=== PATIENT | male | born 1990 | race Caucasian/White ===

== ENCOUNTER 2016-05-28 19:20 | Emergency (ER) | payer OTHER ==
[2016-05-28 20:24] VITALS: BP 113/72
[2016-05-28] MEDS ORDERED: Ketorolac INJ* 60 MG/2 ML VIAL IM ONE (20:39)
[2016-05-28] MEDS ORDERED: Amoxicillin/Clavulanate TAB* 875 MG PO ONE (20:42)
[2016-05-28] MEDS ORDERED: traMADol TAB* 50 MG PO ONE (20:45)
--- NOTE | 2016-05-28 20:58 | UC ---
UC General HPI - HPI Summary HPI Summary: 1) RIGHT INDEX FINGER AND RIGHT RING FINGER REDNESS AT CUTICLES. FREQUENTLY BITES NAILS. NO FEVER. NO DISCHARGE. 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 Negative: Diarrhea, Dysuria, Edema, Fever, Nausea, Palpitations, Trauma - Allergy/Home Medications Allergies/Adverse Reactions: Allergies Allergy/AdvReac Type Severity Reaction Status Date / Time No Known Allergies Allergy Verified 05/28/16 20:25 Home Medications: Home Medications Acetaminophen [Acetaminophen Extra Stren] 1,000 mg PO DAILY 05/28/16 [History Confirmed 05/28/16] PMH/Surg Hx/FS Hx/Imm Hx Previously Healthy: Yes - Surgical History Surgical History: None - Family History Known Family History: Positive: Respiratory Disease - Social History Occupation: Unemployed Lives: With Family Alcohol Use: Rare Substance Use Type: None Smoking Status (MU): Heavy Every Day Tobacco Smoker Have You Smoked in the Last Year: Yes Cessation Counseling: Counseled 3+Min - 10 Min Review of Systems Constitutional: Negative Skin: Negative Eyes: Negative ENT: Dental Pain Respiratory: Negative Cardiovascular: Negative Gastrointestinal: Negative Genitourinary: Negative Motor: Negative Neurovascular: Negative Musculoskeletal: Myalgia - RIGHT SECOND AND FOURTH FINGER REDNESS AND PAIN AT CUTICLES Neurological: Negative Psychological: Negative All Other Systems Reviewed And Are Negative: Yes Physical Exam Triage Information Reviewed: Yes Appearance: Well-Appearing, Well-Nourished, Pain Distress, Thin Vital Signs: Initial Vital Signs Temp 97.6 F 05/28/16 20:20 Pulse 107 05/28/16 20:20 Resp 16 05/28/16 20:20 BP 113/72 05/28/16 20:20 Pulse Ox 100 05/28/16 20:20 Vital Signs Reviewed: Yes Eye Exam: Normal Eyes: Positive: Conjunctiva Clear ENT Exam: Normal ENT: Positive: Normal ENT inspection, Hearing grossly normal, Pharynx normal, TMs normal Dental: Positive: Percussion Tenderness @ - 17 Neck exam: Normal Neck: Positive: Supple, Nontender, No Lymphadenopathy Respiratory Exam: Normal Respiratory: Positive: Chest non-tender, Lungs clear, Normal breath sounds, No respiratory distress, No accessory muscle use Cardiovascular Exam: Normal Cardiovascular: Positive: RRR, No Murmur, Pulses Normal Abdominal Exam: Normal Abdomen Description: Positive: Nontender, No Organomegaly Musculoskeletal: Positive: Strength Intact, ROM Intact - RIGHT 2ND AND 4TH FINGER ERRETHEMA AROUND CUTICLES WITHOUT ANY AREAS OF APPRECIABLE FLUCTUANCE. THE COMPLAINT AT THIS POINT APPEARS MORE CELLULITIC THAN ABCESS ON BOTH FINGERS , Other: Neurological Exam: Normal Psychological Exam: Normal Skin Exam: Normal Course/Dx - Differential Dx - Multi-Symptom Differential Diagnoses: Other - PARONYCHIA DENTAL PAIN Provider Diagnoses: RIGHT SECOND AND FOURTH FINGER CELLULITIC PARONYCHIA. DENTAL PAIN GINGIVAL CELLULITIS #17. TOBACCO ABUSE Discharge - Discharge Plan Condition: Stable Disposition: HOME Prescriptions: Amoxicillin/Clavulanate TAB* [Augmentin TAB 875*] 875 mg PO BID #20 tab traMADol TAB* [Ultram*] 50 mg PO Q12H PRN #8 tab MDD TWO TABS PRN Reason: Pain Patient Education Materials: How to Stop Smoking (ED), Paronychia (ED), Cigarette Smoking and Your Health (GEN), Toothache (ED) Referrals: [facility]IAN REFERRAL [Outside] No Primary Care Phys,NOPCP [Primary Care Provider] - Additional Instructions: DENTAL REFERRAL SHEET GIVEN Images Dental: 1 - TENDER HERE
== END 2016-05-28 21:17 | disposition home or self-care (01) ==
LOC: UCCORT 19:20
DX: L03.011 Cellulitis of right finger (principal); K12.2 Cellulitis and abscess of mouth; K08.89 Other specified disorders of teeth and supporting structures; F17.210 Nicotine dependence, cigarettes, uncomplicated
CPT/HCPCS: 96372; 99202; A9270-GY; G0463; J1885

== ENCOUNTER 2016-08-21 13:02 | Emergency (ER) | payer OTHER ==
[2016-08-21 13:18] VITALS: BP 118/75
--- NOTE | 2016-08-21 13:52 | UC ---
Abdominal Pain Male HPI - HPI Summary HPI Summary: EPIGASTRIC ABDOMINAL PAIN X 7 DAYS + NAUSEA , NO VOMITING , NO DIARRHEA OR CONSTIPATION, NO URINARY SX. NO FEVER, NO CHILLS, PAIN WITH MOVEMENT, INCREASE PAIN WITH BREATHING - History of Current Complaint Chief Complaint: UCAbdominalPain Stated Complaint: STOMACH PRESSURE/PAIN NAUSEA Time Seen by Provider: 08/21/16 13:36 Hx Obtained From: Patient Onset/Duration: Gradual Onset, Lasting Days - 7, Still Present Timing: Constant Severity Initially: Moderate Severity Currently: Moderate Location: Epigastric Radiates: No Character: Burning Aggravating Factor(s):: Movement Alleviating Factor(s): Nothing Associated Signs And Symptoms: Positive: Nausea. Negative: Diaphoresis, Fever, Cough, Chest Pain, Dizzy, Back Pain, Constipation, Blood in Stool, Urinary Symptoms, Decreased Appetite, Vomiting, Diarrhea, Penile Discharge - Allergies/Home Medications Allergies/Adverse Reactions: Allergies Allergy/AdvReac Type Severity Reaction Status Date / Time No Known Allergies Allergy Verified 08/21/16 13:18 Home Medications: Home Medications Omeprazole CAP* [Prilosec CAP* 20 MG] 1 tab PO DAILY 08/21/16 [History Confirmed 08/21/16] PMH/Surg Hx/FS Hx/Imm Hx Endocrine History Of: Denies: Thyroid Disease Respiratory History Of: Reports: Asthma Cancer History Of: Denies: Lung Cancer - Surgical History Surgical History: Yes Surgery Procedure, Year, and Place: [place] teeth. RIGHT knee ACL/meniscus - Family History Known Family History: Positive: Respiratory Disease - Social History Alcohol Use: Occasionally Substance Use Type: None Smoking Status (MU): Heavy Every Day Tobacco Smoker Amount Used/How Often: 1/2 ppd Have You Smoked in the Last Year: Yes - Immunization History Most Recent Influenza Vaccination: NONE Most Recent Tetanus Shot: UTD Most Recent Pneumonia Vaccination: N/A Review of Systems Constitutional: Fatigue Skin: Negative Eyes: Negative ENT: Negative Respiratory: Negative Cardiovascular: Negative Gastrointestinal: Abdominal Pain, Vomiting Genitourinary: Negative Motor: Negative All Other Systems Reviewed And Are Negative: Yes Physical Exam Triage Information Reviewed: Yes Appearance: Well-Appearing, Well-Nourished, Pain Distress Vital Signs: Initial Vital Signs Temp 97.6 F 08/21/16 13:13 Pulse 93 08/21/16 13:13 Resp 18 04/25/17 13:13 BP 118/75 08/21/16 13:13 Pulse Ox 100 08/21/16 13:13 Vital Signs Reviewed: Yes Eyes: Positive: Conjunctiva Clear ENT: Positive: Normal ENT inspection, Hearing grossly normal, Pharynx normal Neck: Positive: Supple, Nontender, No Lymphadenopathy Respiratory: Positive: Chest non-tender, Lungs clear, Normal breath sounds Cardiovascular: Positive: RRR, No Murmur, Pulses Normal Abdomen Description: Positive: Soft, Other: - + EPIGASTRIC TENDERNESS. Negative : CVA Tenderness (R), CVA Tenderness (L), Distended, Guarding, Hernia @, Hepatomegaly, McBurney's Point Tenderness, Peritoneal Signs, Pulsatile Mass, Splenomegaly Bowel Sounds: Positive: Present Abd Pain Male Course/Dx - Differential Dx/Clinical Impression Provider Diagnoses: GASTRITIS Discharge - Discharge Plan Condition: Stable Disposition: HOME Prescriptions: Omeprazole 40 mg PO DAILY #30 cap Ondansetron [Zofran 8 MG Odt] 8 mg PO Q8H #12 tab Patient Education Materials: Gastritis (ED) Additional Instructions: FOLLOW UP WITH YOUR PCP IN ONE WEEK
--- NOTE | 2016-08-21 14:00 | RAD ---
Indication: Pleuritic chest pain. 2 views of the chest including dual energy PA views demonstrate no mediastinal shift. Heart is of normal size and configuration. Lung ch demonstrate no pleural fluid, pneumonia or pneumothorax. IMPRESSION: No active cardiopulmonary disease is noted.
== END 2016-08-21 14:11 | disposition home or self-care (01) ==
LOC: UCCORT 13:02
DX: K29.70 Gastritis, unspecified, without bleeding (principal); J45.909 Unspecified asthma, uncomplicated; F17.210 Nicotine dependence, cigarettes, uncomplicated
CPT/HCPCS: 71020; 99212; G0463

== ENCOUNTER 2017-01-30 20:03 | Emergency (ER) | payer OTHER ==
[2017-01-30 20:38] VITALS: BP 101/56
[2017-01-30] MEDS ORDERED: Ondansetron ODT TAB* 4 MG PO ONE (21:05)
--- NOTE | 2017-01-30 21:12 | UC ---
Abdominal Pain Male HPI - HPI Summary HPI Summary: vomiting and diarrhea for 5 days. no other household contacts. no well water or recent hospitlization. he has been started on zoloft about a week ago. no blood or fever. - History of Current Complaint Chief Complaint: UCGI Stated Complaint: COLD COMPLAINT Time Seen by Provider: 01/30/17 20:50 Hx Obtained From: Patient, Family/Seo Analyst Onset/Duration: Gradual Onset, Lasting Days Timing: Constant Severity Initially: Mild Severity Currently: Moderate Location: Diffuse - diffuse aching and cramping. Radiates: No Character: Cramping Aggravating Factor(s): Food, Movement Alleviating Factor(s): Nothing Associated Signs And Symptoms: Positive: Decreased Appetite, Diarrhea. Negative : Diaphoresis, Fever, Constipation, Blood in Stool, Urinary Symptoms, Vomiting - Allergies/Home Medications Allergies/Adverse Reactions: Allergies Allergy/AdvReac Type Severity Reaction Status Date / Time No Known Allergies Allergy Verified 01/30/17 20:31 Home Medications: Home Medications Acetaminophen [Tylenol] 650 mg PO ONCE PRN 01/30/17 [History Confirmed 01/30/17] PMH/Surg Hx/FS Hx/Imm Hx Previously Healthy: No - appendicitis. depression. recent onset seizures. - Surgical History Surgical History: Yes Surgery Procedure, Year, and Place: [place] teeth. RIGHT knee ACL/meniscus. appy - Family History Known Family History: Positive: Respiratory Disease - Social History Alcohol Use: Rare Substance Use Type: None Smoking Status (MU): Heavy Every Day Tobacco Smoker Amount Used/How Often: 1/2 ppd Have You Smoked in the Last Year: Yes - Immunization History Most Recent Influenza Vaccination: NONE Most Recent Tetanus Shot: UTD Most Recent Pneumonia Vaccination: N/A Review of Systems Gastrointestinal: Vomiting, Diarrhea All Other Systems Reviewed And Are Negative: Yes Physical Exam Triage Information Reviewed: Yes Appearance: Well-Appearing, No Pain Distress, Well-Nourished Vital Signs: Initial Vital Signs Temp 99.1 F 01/30/17 20:33 Pulse 84 01/30/17 20:33 Resp 14 01/30/17 20:33 BP 101/56 01/30/17 20:33 Pulse Ox 98 01/30/17 20:33 Vital Signs Reviewed: Yes Eye Exam: Normal ENT: Positive: Pharynx normal Neck: Positive: Supple, Nontender, No Lymphadenopathy Respiratory: Positive: Lungs clear, Normal breath sounds, No respiratory distress, No accessory muscle use. Negative: Respiratory distress Cardiovascular: Positive: RRR, No Murmur, Pulses Normal, Brisk Capillary Refill Abdominal Exam: Other - tender diffusely most notably in the LUQ. no guarding or rebound. Abdomen Description: Positive: No Organomegaly, Soft. Negative: CVA Tenderness (R), CVA Tenderness (L), Distended, Guarding Musculoskeletal: Positive: Strength Intact, ROM Intact, No Edema Neurological: Positive: Alert, Muscle Tone Normal, Fatigued Psychological: Positive: Age Appropriate Behavior Skin: Negative: rashes Abd Pain Male Course/Dx - Course Course Of Treatment: this is not c/w with zoloft side effects and diarrhea is not typically a symptom. no bleeding. he agrees to get re evaluation if there is any persistent or worsening symptoms. he is currently drinking a chanda lesley and is holding that down. - Differential Dx/Clinical Impression Provider Diagnoses: diarrhea. vomiting. diffuse abd pain Discharge - Discharge Plan Condition: Good Disposition: HOME Prescriptions: Loperamide CAP* [Imodium CAP*] 4 mg PO Q4H PRN #20 cap PRN Reason: Diarrhea Ondansetron ODT TAB* [Zofran 4 MG Odt TAB*] 4 mg PO Q8H PRN #20 tab.odt PRN Reason: Vomiting Patient Education Materials: Loperamide (By mouth), Acute Diarrhea (ED) Referrals: No Primary Care Phys,NOPCP [Primary Care Provider] - Additional Instructions: return for any worsening.
== END 2017-01-30 21:17 | disposition home or self-care (01) ==
LOC: UCCORT 20:03
DX: R19.7 Diarrhea, unspecified (principal); R11.10 Vomiting, unspecified; R10.9 Unspecified abdominal pain
CPT/HCPCS: 99212; A9270-GY; G0463

== ENCOUNTER 2017-03-05 14:56 | Emergency (ER) | payer OTHER ==
[2017-03-05 15:31] VITALS: BP 122/71
--- NOTE | 2017-03-05 15:32 | UC ---
Throat Pain/Nasal Keven HPI - HPI Summary HPI Summary: Pt presents with sore throat and hoarseness for 2 days. Girlfriend is sick with bronchitis. Has not tried anything OTC. Eating, drinking, swallowing, and talking make his pain worse. He denies fever, chills, SOB, chest congestion, cough, N/V/D/C. - History of Current Complaint Chief Complaint: UCRespiratory Stated Complaint: ST,COUGH Time Seen by Provider: 03/05/17 15:32 Hx Obtained From: Patient Onset/Duration: Gradual Onset Severity: Severe Pain Intensity: 8 Pain Scale Used: 0-10 Numeric Cough: Nonproductive Associated Signs & Symptoms: Positive: Hoarseness. Negative: Dysphagia, FB Sensation, Drooling, Fever, Vomiting, Rash - Allergies/Home Medications Allergies/Adverse Reactions: Allergies Allergy/AdvReac Type Severity Reaction Status Date / Time No Known Allergies Allergy Verified 03/05/17 15:27 PMH/Surg Hx/FS Hx/Imm Hx Previously Healthy: Yes - Surgical History Surgical History: Yes Surgery Procedure, Year, and Place: [place] teeth. RIGHT knee ACL/meniscus. appy - Family History Known Family History: Positive: Respiratory Disease - Social History Alcohol Use: None Substance Use Type: None Smoking Status (MU): Heavy Every Day Tobacco Smoker Amount Used/How Often: <1/2 ppd Have You Smoked in the Last Year: Yes Cessation Counseling: Counseled 3+Min - 10 Min - Immunization History Most Recent Influenza Vaccination: NONE 2016 Most Recent Tetanus Shot: UTD Most Recent Pneumonia Vaccination: N/A Review of Systems Constitutional: Negative Eyes: Negative ENT: Sore Throat, Other - Hoarseness Respiratory: Negative Cardiovascular: Negative Gastrointestinal: Negative Neurovascular: Negative Neurological: Negative Psychological: Negative Is Patient Immunocompromised?: No All Other Systems Reviewed And Are Negative: Yes Physical Exam Triage Information Reviewed: Yes Appearance: Well-Appearing, Well-Nourished Vital Signs: Initial Vital Signs Temp 99 F 03/05/17 15:27 Pulse 109 03/05/17 15:27 Resp 16 03/05/17 15:27 BP 122/71 03/05/17 15:27 Pulse Ox 100 03/05/17 15:27 Vital Signs Reviewed: Yes Eyes: Positive: Conjunctiva Clear ENT: Positive: Hearing grossly normal, Pharyngeal erythema, TMs normal, Hoarse voice, Uvula midline. Negative: Nasal congestion, Nasal drainage, TM bulging, TM dull, TM red, Tonsillar swelling, Tonsillar exudate, Sinus tenderness Neck: Positive: Supple, No Lymphadenopathy, Tenderness @ - Right and Left submandibular Respiratory: Positive: Chest non-tender, Lungs clear, Normal breath sounds, No respiratory distress, No accessory muscle use Cardiovascular: Positive: RRR, No Murmur, Pulses Normal Neurological: Positive: Alert Psychological: Positive: Age Appropriate Behavior Skin: Negative: rashes Throat Pain/Nasal Course/Dx - Course Course Of Treatment: 1) Z-chapincito take as directed. 2) Lidocaine swish and swallow. May use 10-15mL three times a day as needed for sore throat Assessment/Plan: 1) Z-chapincito take as directed. 2) Lidocaine swish and swallow. May use 10-15mL three times a day as needed for sore throat - Differential Dx/Diagnosis Differential Diagnosis/HQI/PQRI: Epiglottitis, Influenza, Peritonsillar Abscess , Pharyngitis Provider Diagnoses: Pharyngitis Discharge - Discharge Plan Condition: Stable Disposition: HOME Prescriptions: Azithromycin TAB* [Zithromax TAB (Z-CHAPINCITO) 250 mg #6 tabs] 2 tab PO .TODAY, THEN 1 DAILY #1 chaipncito Lidocaine 2% VISCOUS* [Xylocaine 2% Viscous*] 15 ml SWISH SWAL Q6H PRN #1 btl PRN Reason: Pain Patient Education Materials: Pharyngitis (ED) Referrals: GABBIE Pires [Primary Care Provider] - Additional Instructions: 1) Z-chapincito take as directed 2) Lidocaine swish and swallow. May use 10-15mL three times a day as needed for sore throat 3) Rest and drink plenty of fluids. If you develop a fever, SOB, chest pain, new or worsening symptoms - please call our office or go to ED
== END 2017-03-05 16:18 | disposition home or self-care (01) ==
LOC: UCCORT 14:56
DX: J02.9 Acute pharyngitis, unspecified (principal); F17.210 Nicotine dependence, cigarettes, uncomplicated
CPT/HCPCS: 87651; 99212; G0463

== ENCOUNTER 2017-04-20 20:30 | Emergency (ER) | payer OTHER ==
[2017-04-20 20:49] VITALS: BP 116/68
--- NOTE | 2017-04-20 20:53 | UC ---
FLU HPI - HPI Summary HPI Summary: 26 year old male presents with body aches and fever. - History of Current Complaint Chief Complaint: UCGeneralIllness Stated Complaint: VOMITING/BODY ACHES Time Seen by Provider: 04/20/17 20:52 Hx Obtained From: Patient Onset/Duration: Sudden Onset Severity Currently: Moderate Severity Initially: Moderate Pain Scale Used: 0-10 Numeric - 5 Associated Signs & Symptoms: Positive: Sore Throat, Nasal Congestion - Allergy/Home Medications Allergies/Adverse Reactions: Allergies Allergy/AdvReac Type Severity Reaction Status Date / Time No Known Allergies Allergy Verified 04/20/17 20:49 Home Medications: Home Medications Acetaminophen TAB* [Tylenol TAB*] 650 mg PO Q4H PRN 04/20/17 [History Confirmed 04/20/17] Ibuprofen [Ibuprofen 200 MG] 400 mg PO Q6H PRN 04/20/17 [History Confirmed 04/20] PMH/Surg Hx/FS Hx/Imm Hx Previously Healthy: Yes - Surgical History Surgical History: Yes Surgery Procedure, Year, and Place: [place] teeth. RIGHT knee ACL/meniscus. appy - Family History Known Family History: Positive: Respiratory Disease - Social History Alcohol Use: Occasionally Substance Use Type: None Smoking Status (MU): Heavy Every Day Tobacco Smoker Type: Cigarettes Amount Used/How Often: <1/2 ppd Length of Time of Smoking/Using Tobacco: 6 YRS Have You Smoked in the Last Year: Yes - Immunization History Most Recent Influenza Vaccination: NONE 2016 Most Recent Tetanus Shot: UTD Most Recent Pneumonia Vaccination: N/A Review of Systems Constitutional: Negative Skin: Negative Eyes: Negative ENT: Sore Throat, Nasal Discharge, Sinus Congestion Respiratory: Negative Cardiovascular: Negative Gastrointestinal: Negative Genitourinary: Negative Motor: Negative Neurovascular: Negative Musculoskeletal: Negative Neurological: Negative Psychological: Negative All Other Systems Reviewed And Are Negative: Yes Physical Exam Triage Information Reviewed: Yes Vital Signs: Initial Vital Signs Temp 36.9 C 04/20/17 20:40 Pulse 97 04/20/17 20:40 Resp 20 04/20/17 20:40 BP 116/68 04/20/17 20:40 Pulse Ox 99 04/20/17 20:40 Vital Signs Reviewed: Yes Eye Exam: Normal ENT: Positive: Pharyngeal erythema, Nasal congestion, Nasal drainage, Tonsillar swelling, Sinus tenderness Dental Exam: Normal Neck exam: Normal Neck: Positive: 1 Respiratory Exam: Normal Cardiovascular Exam: Normal Abdominal Exam: Normal Musculoskeletal Exam: Normal Neurological Exam: Normal Psychological Exam: Normal Skin Exam: Normal Flu Course/Dx - Differential Dx/Diagnosis Provider Diagnoses: sinusitis Discharge - Discharge Plan Condition: Stable Disposition: HOME Prescriptions: Amoxicillin/Clavulanate TAB* [Augmentin TAB 875*] 875 mg PO BID #20 tab Fluticasone NASAL SPRAY 50MCG* [Flonase NASAL SPRAY 50MCG*] 2 spray BOTH NARES DAILY #1 btl LoraTADine TAB(NF) [Claritin 10 MG TAB(NF)] 10 mg PO DAILY #30 tab Patient Education Materials: Sinusitis (ED) Forms: *Work Release Referrals: GABBIE Pires [Primary Care Provider] -
[2017-04-20] MEDS ORDERED: LoraTADine TAB(NF) 10 MG TAB (AUTOSUB to CETIRIZINE) PO ONE (21:19)
[2017-04-20] MEDS ORDERED: Amoxicillin/Clavulanate TAB* 875 MG PO ONE (21:19)
[2017-04-20] MEDS ORDERED: predniSONE TAB* 20 MG PO ONE (21:20)
[2017-04-20] MEDS ORDERED: Ondansetron ODT TAB* 4 MG PO ONE (21:23)
[2017-04-20] MEDS ORDERED: Ondansetron ODT TAB* 4 MG ONE (21:34)
== END 2017-04-20 21:37 | disposition home or self-care (01) ==
LOC: UCCORT 20:30
DX: J32.9 Chronic sinusitis, unspecified (principal); Z72.0 Tobacco use; Z72.89 Other problems related to lifestyle
CPT/HCPCS: 87502; 99213; A9270-GY; G0463; J7512

== ENCOUNTER 2017-05-22 14:21 | Emergency (ER) | payer OTHER ==
[2017-05-22] MEDS ORDERED: Ondansetron INJ* 2 MG/ML VIAL IV ONE ×2 (16:01→16:29)
[2017-05-22] MEDS ORDERED: Ondansetron ODT TAB* 4 MG PO ONE (16:02)
[2017-05-22] MEDS ORDERED: hydrOXYzine HCL TAB* 25 MG PO ONE (16:02)
[2017-05-22] MEDS ORDERED: Ondansetron INJ* 2 MG/ML VIAL ONE (16:31)
[2017-05-22 17:10] LABS: Urine Appearance Clear; Urine Blood Negative (Negative); Urine Color Yellow; Urine Ketones Negative (Negative); Urine Protein Negative (Negative); Urine Specific Gravity 1.014 (1.010-1.030); Urine Urobilinogen Negative (Negative)
--- NOTE | 2017-05-22 17:13 | RAD ---
Indication: Back pain. Abdominal pain. Flat and upright views of the abdomen demonstrates no free air. Air distended colon is noted. No dilated loops of small bowel are noted. IMPRESSION: Air distended stomach with no free air or obstruction is noted.
[2017-05-22 17:18] LABS: ABS Basophils 0.1 10^3/ul (0-0.2); ABS Eosinophils 0.1 10^3/ul (0-0.6); ABS Lymphocytes 1.3 10^3/ul (1.0-4.8); ABS Monocytes 0.6 10^3/ul (0-0.8); ABS Neutrophils 6.6 10^3/ul (1.5-7.7); ABS Nucleated RBC 0 10^3/ul; Eosinophil % 1.7 % (0-6); Hematocrit 47 % (42-52); Hemoglobin 16.2 g/dl (14.0-18.0); Lymphocyte % 14.7 % (25-47); Mean Corpuscular HGB Conc 34 g/dl (31-36); Mean Corpuscular Hemoglobin 31 pg (27-31); Mean Corpuscular Volume 91 fL (80-94); Mean Platelet Volume 8 um3 (7.4-10.4); Nucleated Red Blood Cells % 0; Platelet Count 256 10^3/ul (150-450); Red Blood Count 5.15 10^6/ul (4.0-5.4); Red Cell Distribution Width 13 % (10.5-15); White Blood Count 8.7 10^3/ul (3.5-10.8)
[2017-05-22 17:19] LABS: EGFR Non-African American 103.7 (>60)
[2017-05-22 17:59] VITALS: BP 102/64
--- NOTE | 2017-05-22 18:00 | ED ---
Maximo Hood Nilda, scribed for Louis Peter MD on 05/22/17 at 1553 . GI/ HPI - HPI Summary HPI Summary: This patient is a 26 year old M presenting to [facility] accompanied by parents with a chief complaint of constant nausea since yesterday. The patient rates pain 8/ 10 in severity. Symptoms aggravated and alleviated by notihng. Patient reports fatigue, body weakness, dizziness, and slow response. Pt states he's had previous episodes when having low blood sugar. Per mother, pt has had loss of appetite. She also notes pt had neuro consult in [place] and was Dx with Panic Disorder. PMHx includes panic attacks. - History of Current Complaint Chief Complaint: EDNauseaVomitDiarrh Time Seen by Provider: 05/22/17 14:33 Stated Complaint: NAUSEA Hx Obtained From: Patient Onset/Duration: Started Hours Ago, Still Present Timing: Constant Current Severity: Severe Pain Intensity: 8 Associated Signs and Symptoms: Positive: Other: - reports loss of appetite, fatigue, body weakness, dizziness, and slow response. - Allergy/Home Medications Allergies/Adverse Reactions: Allergies Allergy/AdvReac Type Severity Reaction Status Date / Time bees Allergy Swelling Uncoded 05/22/17 15:49 PMH/Surg Hx/FS Hx/Imm Hx Endocrine/Hematology History: Denies: Hx Thyroid Disease Respiratory History: Reports: Hx Asthma Denies: Hx Lung Cancer Psychiatric History: Reports: Other Psychiatric Issues/Disorders - Panic Attacks - Surgical History Surgery Procedure, Year, and Place: [place] teeth. RIGHT knee ACL/meniscus. appy Infectious Disease History: No Infectious Disease History: Denies: Traveled Outside the [place] in Last 30 Days - Family History Known Family History: Positive: Respiratory Disease - Social History Alcohol Use: Occasionally Substance Use Type: Reports: None Smoking Status (MU): Heavy Every Day Tobacco Smoker Type: Cigarettes Amount Used/How Often: <1/2 ppd Length of Time of Smoking/Using Tobacco: 6 YRS Have You Smoked in the Last Year: Yes Review of Systems Positive: Fatigue Positive: Nausea Neurological: Other - dizziness, slow response Positive: Weakness All Other Systems Reviewed And Are Negative: Yes Physical Exam - Summary Physical Exam Summary: VITAL SIGNS: Reviewed. GENERAL: Patient is a well-developed and nourished male who is lying comfortable in the stretcher. Patient is not in any acute respiratory distress. HEAD AND FACE: No signs of trauma. No ecchymosis, hematomas or skull depressions. No sinus tenderness. EYES: PERRLA, EOMI x 2, No injected conjunctiva, no nystagmus. EARS: Hearing grossly intact. Ear canals and tympanic membranes are within normal limits. MOUTH: Oropharynx within normal limits. NECK: Supple, trachea is midline, no adenopathy, no JVD, no carotid bruit, no c- spine tenderness, neck with full ROM. CHEST: Symmetric, no tenderness at palpation LUNGS: Clear to auscultation bilaterally. No wheezing or crackles. CVS: Regular rate and rhythm, S1 and S2 present, no murmurs or gallops appreciated. ABDOMEN: Soft, non-tender. No signs of distention. No rebound no guarding, and no masses palpated. Bowel sounds are normal. EXTREMITIES: FROM in all major joints, no edema, no cyanosis or clubbing. NEURO: Alert and oriented x 3. No acute neurological deficits. Speech is normal and follows commands. SKIN: Dry and warm Triage Information Reviewed: Yes Vital Signs On Initial Exam: Initial Vitals Temp Pulse Resp BP Pulse Ox 98.5 F 75 20 106/65 98 05/22/17 15:06 05/22/17 15:06 05/22/17 15:06 05/22/17 15:06 05/22/17 15:06 Vital Signs Reviewed: Yes Diagnostics - Vital Signs Vital Signs Temp Pulse Resp BP Pulse Ox 05/22/17 15:06 98.5 F 75 20 106/65 98 - Laboratory Lab Results: Lab Results 05/22/17 05/22/17 05/22/17 Range/Units 16:22 16:22 16:35 WBC 8.7 (3.5-10.8) 10^3/ul RBC 5.15 (4.0-5.4) 10^6/ul Hgb 16.2 (14.0-18.0) g/dl Hct 47 (42-52) % MCV 91 (80-94) fL MCH 31 (27-31) pg MCHC 34 (31-36) g/dl RDW 13 (10.5-15) % Plt Count 256 (150-450) 10^3/ul MPV 8 (7.4-10.4) um3 Neut % (Auto) 75.7 (38-83) % Lymph % (Auto) 14.7 L (25-47) % Wayne % (Auto) 7.3 (1-9) % Eos % (Auto) 1.7 (0-6) % Baso % (Auto) 0.6 (0-2) % Absolute Neuts (auto) 6.6 (1.5-7.7) 10^3/ul Absolute Lymphs (auto) 1.3 (1.0-4.8) 10^3/ul Absolute Monos (auto) 0.6 (0-0.8) 10^3/ul Absolute Eos (auto) 0.1 (0-0.6) 10^3/ul Absolute Basos (auto) 0.1 (0-0.2) 10^3/ul Absolute Nucleated RBC 0 10^3/ul Nucleated RBC % 0 Sodium 136 (133-145) mmol/L Potassium 4.2 (3.5-5.0) mmol/L Chloride 104 (101-111) mmol/L Carbon Dioxide 29 (22-32) mmol/L Anion Gap 3 (2-11) mmol/L BUN 7 (6-24) mg/dL Creatinine 0.90 (0.67-1.17) mg/dL Est GFR ( Amer) 133.3 (>60) Est GFR (Non-Af Amer) 103.7 (>60) BUN/Creatinine Ratio 7.8 L (8-20) Glucose 81 (70-100) mg/dL Calcium 9.8 (8.6-10.3) mg/dL Total Bilirubin 0.60 (0.2-1.0) mg/dL AST 16 (13-39) U/L ALT 12 (7-52) U/L Alkaline Phosphatase 72 (34-104) U/L C-Reactive Protein < 1.00 (< 5.00) mg/L Total Protein 7.2 (6.4-8.9) g/dL Albumin 4.5 (3.2-5.2) g/dL Globulin 2.7 (2-4) g/dL Albumin/Globulin Ratio 1.7 (1-3) Amylase 66 (29-103) U/L Lipase Pending Urine Color Yellow Urine Appearance Clear Urine pH 5.0 (5-9) Ur Specific [place] 1.014 (1.010-1.030) Urine Protein Negative (Negative) Urine Ketones Negative (Negative) Urine Blood Negative (Negative) Urine Nitrate Negative (Negative) Urine Bilirubin Negative (Negative) Urine Urobilinogen Negative (Negative) Ur Leukocyte Esterase Negative (Negative) Urine Glucose Negative (Negative) Result Diagrams: 05/22/17 16:22 05/22/17 16:22 Lab Statement: Any lab studies that have been ordered have been reviewed, and results considered in the medical decision making process. - Radiology Abd XR Radiology Interpretation Completed By: Radiologist - Abd XR, per radiologist, reveals air distended stomach with no free air or obstruction is noted. Dr. Peter has reviewed this radiology report. GIGU Course/Dx - Course Assessment/Plan: This patient is a 26 year old M presenting to [facility] accompanied by parents with a chief complaint of constant nausea since yesterday. The patient rates pain 8/10 in severity. Symptoms aggravated and alleviated by notihng. Patient reports fatigue, body weakness, dizziness, and slow response. Pt states he's had previous episodes when having low blood sugar. Per mother, pt has had loss of appetite. She also notes pt had neuro consult in [place] and was Dx with Panic Disorder. PMHx includes panic attacks. Pending labs and Abd XR. Test results are without significant abnormality. In ED course, pt was given Zofran for N/V and symptoms improved. At this point, pt is asymptomatic, feeling better, and has no other complaints. Abd XR, per radiologist, reveals air distended stomach with no free air or obstruction is noted. Dr. Peter has reviewed this radiology report. The pt was given PO challenge and he did not have N/V. I discussed all the findings and test results with the patient. Patient was instructed to return to the emergency room immediately if any of the symptoms return or worsens. Plan of care was discussed with the patient and understands and agrees. All questions were answered at patient satisfaction. There were no further complaints or concerns. Lung exam before discharge: CTA B/L. Good air exchange. No wheezing or crackles heard. CVS: S1 and S2 present. No murmurs appreciated. Patient is alert and oriented x 3. Patient is hemodynamically stable. Patient will be discharged home with follow up PCP in the next 2-3 days - Diagnoses Differential Diagnoses - Male: Gastroenteritis (Viral), Gerd Provider Diagnoses: Nausea without vomiting Discharge - Discharge Plan Condition: Stable Disposition: HOME Patient Education Materials: Acute Nausea and Vomiting (ED) Referrals: GABBIE Pires [Primary Care Provider] - 3 Days Additional Instructions: RETURN TO THE EMERGENCY DEPARTMENT FOR CHANGING OR WORSENING SYMPTOMS. The documentation as recorded by the Maximo boss Nilda accurately reflects the service I personally performed and the decisions made by Rome alcala Walter, MD.
== END 2017-05-22 17:57 | disposition home or self-care (01) ==
LOC: ED 14:21
DX: R11.0 Nausea (principal); F17.210 Nicotine dependence, cigarettes, uncomplicated; F41.0 Panic disorder [episodic paroxysmal anxiety]; J45.909 Unspecified asthma, uncomplicated
CPT/HCPCS: 36415; 74019; 80053; 81003; 82150; 83690; 85025; 86140; 96374; 96376; 99282; A9270-GY; J2405

== ENCOUNTER 2017-07-08 16:37 | Emergency (ER) | payer OTHER ==
[2017-07-08 17:34] VITALS: BP 115/69
--- NOTE | 2017-07-08 18:41 | UC ---
Throat Pain/Nasal Keven HPI - HPI Summary HPI Summary: 26 male presents to with complaints of sinus congestion, headache nasal congestion, productive cough and post nasal drip making him nauseous that has been ongoing for the past week. No other complaints. Has been trying cough medication, OTC nasal/sinus medication and antihistamines without relief. denies fever. - History of Current Complaint Chief Complaint: UCGeneralIllness Stated Complaint: SINUSES, COUGH, CONGESTION Time Seen by Provider: 07/08/17 17:42 Hx Obtained From: Patient Onset/Duration: Sudden Onset, Lasting Weeks - 1, Still Present, Worse Since Severity: Mild Pain Intensity: 0 Pain Scale Used: 0-10 Numeric Cough: Productive Associated Signs & Symptoms: Positive: Sinus Discomfort, Nasal Discharge - Allergies/Home Medications Allergies/Adverse Reactions: Allergies Allergy/AdvReac Type Severity Reaction Status Date / Time bees Allergy Swelling Uncoded 07/08/17 17:34 PMH/Surg Hx/FS Hx/Imm Hx - Additional Past Medical History Additional PMH: Denies PMHx - Surgical History Surgical History: Yes Surgery Procedure, Year, and Place: [place] teeth. RIGHT knee ACL/meniscus. appy - Family History Known Family History: Positive: Respiratory Disease - Social History Alcohol Use: Occasionally Substance Use Type: None Smoking Status (MU): Heavy Every Day Tobacco Smoker Type: Cigarettes Amount Used/How Often: <1/2 ppd Length of Time of Smoking/Using Tobacco: 6 YRS Have You Smoked in the Last Year: Yes - Immunization History Most Recent Influenza Vaccination: NONE 2016 Most Recent Tetanus Shot: UTD Most Recent Pneumonia Vaccination: N/A Review of Systems Constitutional: Negative ENT: Sore Throat, Nasal Discharge, Sinus Congestion, Sinus Pain/Tenderness Respiratory: Cough Cardiovascular: Negative Gastrointestinal: Nausea Neurological: Headache All Other Systems Reviewed And Are Negative: Yes Physical Exam Triage Information Reviewed: Yes Appearance: Well-Appearing, No Pain Distress, Well-Nourished Vital Signs: Initial Vital Signs Temp 98.4 F 07/08/17 17:30 Pulse 100 07/08/17 17:30 Resp 18 07/08/17 17:30 BP 115/69 07/08/17 17:30 Pulse Ox 100 07/08/17 17:30 Vital Signs Reviewed: Yes Eyes: Positive: Conjunctiva Clear ENT: Positive: Hearing grossly normal, Pharyngeal erythema - post nasal drip noted, TMs normal - serous effusion bl tm, Sinus tenderness, Uvula midline. Negative: Tonsillar swelling, Tonsillar exudate Dental: Positive: Percussion Tenderness @ - maxillary bl. Negative: Cervical Lymphadenopathy Neck: Positive: Supple, Nontender, No Lymphadenopathy Respiratory: Positive: Chest non-tender, Lungs clear, Normal breath sounds, No respiratory distress, No accessory muscle use Cardiovascular: Positive: RRR, No Murmur Abdomen Description: Positive: Nontender Bowel Sounds: Positive: Present Musculoskeletal: Positive: Strength Intact Neurological: Positive: Alert Skin Exam: Normal Throat Pain/Nasal Course/Dx - Course Course Of Treatment: appears to be suffering from sinusitis. flonase, augmentin , hot compresses, OTC meds, hot showers, fluids, rest. Aware of worsening signs and symptoms, saline nasal rinses. follow up with pcp. - Differential Dx/Diagnosis Differential Diagnosis/HQI/PQRI: Pharyngitis, Sinusitis, URI Provider Diagnoses: acute sinusitis Discharge - Discharge Plan Condition: Good Disposition: HOME Prescriptions: Amoxicillin/Clavulanate TAB* [Augmentin TAB 875*] 875 mg PO BID #20 tab Fluticasone NASAL SPRAY 50MCG* [Flonase NASAL SPRAY 50MCG*] 2 spray BOTH NARES DAILY #1 btl Patient Education Materials: Sinusitis (ED), Warm Compress or Soak (ED) Forms: *Work Release Referrals: GABBIE Pires [Primary Care Provider] - Additional Instructions: Take prescribed medication as directed until entire dose is finished. Use nasal spray to help with nasal congestion. Also recommend saline rinses to help open up ariways and clear congestion. Ibuprofen for headache. Extra pillow at bedtime. Salt water gargles. Hot compresses over cheeks and hot showers. Any new or worsening symptoms please seek medical attention. Follow up with PCP.
== END 2017-07-08 18:53 | disposition home or self-care (01) ==
LOC: UCCORT 16:37
DX: J01.90 Acute sinusitis, unspecified (principal); F17.210 Nicotine dependence, cigarettes, uncomplicated
CPT/HCPCS: 99212; G0463